=== PATIENT | male | born 1995 | race Two or more races ===

== ENCOUNTER 2019-02-16 13:48 | Emergency (ER) | payer MEDICAID ==
[~2019-02-16] VITALS: Ht 177.8 cm; Wt 83.9 kg
[2019-02-16 15:13] VITALS: BP 122/65
== END 2019-02-16 15:34 | disposition home or self-care (01) ==
LOC: ER 13:48
DX: S83.91XA Sprain of unspecified site of right knee, initial encounter (principal); X50.1XXA Overexertion from prolonged static or awkward postures, initial encounter; Y93.67 Activity, basketball; Y92.39 Other specified sports and athletic area as the place of occurrence of the external cause; Y99.8 Other external cause status
CPT/HCPCS: 73562